=== PATIENT | female | born 1985 | race Two or more races ===

== ENCOUNTER 2022-10-01 09:24 | Emergency (ER) | payer MEDICAID, OTHER ==
[~2022-10-01] VITALS: Ht 154.9 cm; Wt 57.6 kg
--- NOTE | 2022-10-01 09:32 | NUR ---
BIBSELF FOR LIP SWELLING NOTED SINCE YESTERDAY. DENIES SOB/THROAT DISCOMFORT
--- NOTE | 2022-10-01 09:35 | NUR ---
AT BEDSIDE FOR EVAL
[2022-10-01] MEDS ORDERED: LORATADINE 10 MG TABLET PO SCH (10:00)
[2022-10-01] MEDS ORDERED: methylPREDNISolone SOD SUCC 125 MG/2ML VIAL IM ONE (10:00)
[2022-10-01] MEDS ORDERED: LORATADINE 10 MG TABLET ONE (10:17)
[2022-10-01] MEDS ORDERED: DEXAMETHASONE SOD PHOSPHATE 10 MG/ML VIAL ONE (10:17)
[2022-10-01] MEDS ORDERED: DEXAMETHASONE SOD PHOSPHATE 10 MG/ML VIAL IM ONE (10:30)
--- NOTE | 2022-10-01 10:45 | NUR ---
NO S/SX OF WORSENING ALLERGIC REACTIONS, NO RESPIRATORY DISTRESS NOTED
[2022-10-01] MEDS ORDERED: EPIN0.3P3 IM (12:00)
--- NOTE | 2022-10-01 12:19 | NUR ---
Patient discharged to home in stable condition. Written and verbal after care instructions given. Patient verbalizes understanding of instruction.
[2022-10-01 12:22] VITALS: BP 118/85
== END 2022-10-01 12:23 | disposition home or self-care (01) ==
LOC: ER 09:35
DX: K13.0 Diseases of lips (principal)
CPT/HCPCS: 99283; 96372; J1100

== ENCOUNTER 2023-08-07 11:45 | Emergency (ER) | payer MEDICAID, OTHER ==
[~2023-08-07] VITALS: Ht 167.6 cm; Wt 59.0 kg
[~2023-08-07 11:45] MED LIST: EPIN0.3P3 IM
[2023-08-07 12:10] VITALS: BP 150/87; TEMP 98.6
[2023-08-07 12:23] VITALS: O2SAT 99
== END 2023-08-07 12:24 | disposition home or self-care (01) ==
LOC: ER 11:51
DX: J06.9 Acute upper respiratory infection, unspecified (principal); J45.909 Unspecified asthma, uncomplicated